=== PATIENT | male | born 2000 | race Hispanic/Latino ===

== ENCOUNTER 2021-02-24 15:51 | Emergency (ER) | payer SELFPAY ==
[2021-02-24] MEDS ORDERED: KEFLEX500 MG PO (19:07)
[2021-02-24 19:15] VITALS: BP 132/69
== END 2021-02-24 19:21 | disposition home or self-care (01) | DRG 605 ==
LOC: ED 15:51
PROC: 0HQGXZZ Repair Left Hand Skin, External Approach (ICD-10-PCS; principal; 2021-02-24)
DX: S61.211A Laceration without foreign body of left index finger without damage to nail, initial encounter (principal); W31.89XA Contact with other specified machinery, initial encounter; Y92.009 Unspecified place in unspecified non-institutional (private) residence as the place of occurrence of the external cause